=== PATIENT | male | born 1930 | race Caucasian/White ===

== ENCOUNTER 2016-09-14 11:17 | Emergency (ER) | payer MEDICARE, OTHER ==
--- NOTE | 2016-09-14 12:17 | XRAY Report ---
EXAM: CHEST RADIOGRAPHY EXAM DATE: 09/14/2016 11:56 AM. CLINICAL HISTORY: Fatigue tachypnea. COMPARISON: Single view of the chest 05/22/2015. TECHNIQUE: 2 views. FINDINGS: Lungs/Pleura: Stable vascular prominence. Coarse interstitial infiltrates predominating within the lo wer lung mosqueda, left greater than right, mildly progressed. New small left pleural effusion. Very sm all posterior right pleural effusion is not excluded. No pneumothorax. Mediastinum: Stable cardiac enlargement. Stable transvenous cardiac leads. Median sternotomy/CABG fransisco nges redemonstrated. Other: None. IMPRESSION: 1. Stable cardiac enlargement. 2. Stable vascular congestion/prominence. 3. Bilateral coarse interstitial infiltrates predominating within the lower lung mosqueda, left greater than right, are mildly increased compared with 05/22/2015. This could represent progression of chron ic interstitial lung disease, versus mild superimposed acute infiltrate or edema. 4. Small left and possible very small right pleural effusion. [facility] Referring Provider Line: [phone] SITE ID: [id number]
[2016-09-14 12:27] LABS: BASOPHILS # (AUTO) 0.1 10^3/uL (0.0-0.1); BASOPHILS % (AUTO) 0.6 %; EOSINOPHILS # (AUTO) 0.1 10^3/uL (0.0-0.7); EOSINOPHILS % (AUTO) 0.7 %; HCT - HEMATOCRIT 39.9 % (42.0-52.0); HGB - HEMOGLOBIN 13.3 g/dL (14.0-18.0); LYMPHOCYTES # (AUTO) 0.5 10^3/uL (1.5-3.5); MEAN CORPUSCULAR HEMOGLOBIN 30.1 pg (27.0-31.0); MEAN CORPUSCULAR HGB CONC 33.3 g/dL (32.0-36.0); MEAN CORPUSCULAR VOLUME 90.5 fL (80.0-94.0); MEAN PLATELET VOLUME 7.7 fL (7.4-11.4); MONOCYTES % (AUTO) 9.3 %; NEUTROPHILS # (AUTO) 9.1 10^3/uL (1.5-6.6); NEUTROPHILS % (AUTO) 84.4 %; RED BLOOD COUNT 4.41 10^6/uL (4.70-6.10); UNCORRECTED WHITE BLOOD COUNT 10.8 x10^3/uL; WHITE BLOOD COUNT 10.8 x10^3/uL (4.8-10.8)
[2016-09-14 12:38] LABS: CALCIUM 9.3 mg/dL (8.5-10.3); CREATININE 1.2 mg/dL (0.6-1.2); POTASSIUM 4.4 mmol/L (3.5-5.0)
[2016-09-14] MEDS ORDERED: FUROSEMIDE 40 MG/4 ML VIAL IVP STA (13:46)
[2016-09-14 14:03] VITALS: BP 136/57
[2016-09-14] MEDS ORDERED: FUROSEMIDE 20 MG TABLET PO STA (14:12)
[2016-09-14] MEDS ORDERED: FUROSEMIDE 20 MG TABLET ONE (14:27)
[2016-09-14 15:22] LABS: BILIRUBIN,URINE NEGATIVE (NEGATIVE); PH,URINE 7.5 PH (5.0-7.5)
[2016-09-14 15:23] LABS: UA CHARGE (STRIP ONLY) YES; UR CULTURE IF IND NOT INDICATED
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
== END 2016-09-14 16:16 | disposition home or self-care (01) ==
LOC: ED 11:17
DX: J81.0 Acute pulmonary edema (principal); I25.5 Ischemic cardiomyopathy; I25.10 Atherosclerotic heart disease of native coronary artery without angina pectoris; Z95.1 Presence of aortocoronary bypass graft; Z95.810 Presence of automatic (implantable) cardiac defibrillator; I25.2 Old myocardial infarction; E11.9 Type 2 diabetes mellitus without complications; Z79.84 Long term (current) use of oral hypoglycemic drugs; N40.0 Benign prostatic hyperplasia without lower urinary tract symptoms; Z79.82 Long term (current) use of aspirin
CPT/HCPCS: 36415; 71020; 80048; 81003; 83880; 84484; 85025; 99283; 99284; A9270; 81001; 87086

== ENCOUNTER 2016-11-06 09:58 | Outpatient (CLI) | payer MEDICARE, OTHER | END 2016-11-06 09:59 | disposition critical access hospital (66) | LOC: EMS 09:58 | PROVIDERS: ATTEND Surgery | DX: R53.1 Weakness (principal); R47.81 Slurred speech; R29.810 Facial weakness | CPT/HCPCS: A0425; A0429 ==

== ENCOUNTER 2016-11-06 10:12 | Inpatient (IN) | payer MEDICARE, OTHER ==
[2016-11-06 10:54] LABS: BASOPHILS # (AUTO) 0.1 10^3/uL (0.0-0.1); BASOPHILS % (AUTO) 0.4 %; EOSINOPHILS # (AUTO) 0.2 10^3/uL (0.0-0.7); EOSINOPHILS % (AUTO) 1.2 %; HCT - HEMATOCRIT 41.6 % (42.0-52.0); HGB - HEMOGLOBIN 14.2 g/dL (14.0-18.0); LYMPHOCYTES # (AUTO) 0.6 10^3/uL (1.5-3.5); LYMPHOCYTES % (AUTO) 4.7 %; MEAN CORPUSCULAR HEMOGLOBIN 29.9 pg (27.0-31.0); MEAN CORPUSCULAR HGB CONC 34.1 g/dL (32.0-36.0); MEAN CORPUSCULAR VOLUME 87.6 fL (80.0-94.0); MEAN PLATELET VOLUME 7.8 fL (7.4-11.4); MONOCYTES # (AUTO) 0.7 10^3/uL (0.0-1.0); MONOCYTES % (AUTO) 5.4 %; NEUTROPHILS # (AUTO) 11.5 10^3/uL (1.5-6.6); NEUTROPHILS % (AUTO) 88.3 %; RED BLOOD COUNT 4.75 10^6/uL (4.70-6.10)
--- NOTE | 2016-11-06 10:58 | CT Preliminary Report ---
Exam: CT Head W/O IMPRESSION: 1. Generalized age-related cortical atrophic changes without evidence of acute intracranial bleed or hematoma. 2. No significant interval changes of the prior asymmetrical prominent lateral ventricles, greater on the right side with left midline shift of 5 mm since 02/03/2014, which could be related to chronic a symmetrical parenchyma atrophy, otherwise, nonspecific finding. [facility] SITE ID: [id number]
[2016-11-06 11:01] LABS: CALCIUM 9.3 mg/dL (8.5-10.3); CREATININE 1.3 mg/dL (0.6-1.2); POTASSIUM 3.8 mmol/L (3.5-5.0)
--- NOTE | 2016-11-06 11:01 | CT Report ---
EXAM: CT HEAD EXAM DATE: 11/06/2016 10:41 AM. CLINICAL HISTORY: R facial droop, L gaze dev. COMPARISON: 05/22/2015. TECHNIQUE: Multiaxial CT images were obtained from the foramen magnum to the vertex. IV contrast: Non e. Reformats: Coronal. In accordance with CT protocol optimization, one or more of the following dose reduction techniques w ere utilized for this exam: automated exposure control, adjustment of mA and/or KV based on patient s ize, or use of iterative reconstructive technique. FINDINGS: Parenchyma: No intraparenchymal hemorrhage. No evidence of mass or midline shift. Mendoza-white differen tiation is distinct. Extraaxial Spaces: Normal for age. No subdural or epidural collections identified. Ventricles: The prior asymmetrical prominent lateral ventricles, greater on the right side with left midline shift of 5 mm again visualized, without significant interval changes; the cortical sulci are enlarged, consistent with age-related tissue loss. Sinuses: Imaged paranasal sinuses, orbits, and mastoids show no significant abnormality. Bones: No evidence of fracture or calvarial defect. Other: Diffuse chronic microangiopathic white matter changes are evident. IMPRESSION: 1. Generalized age-related cortical atrophic changes without evidence of acute intracranial bleed or hematoma. 2. No significant interval changes of the prior asymmetrical prominent lateral ventricles, greater on the right side with left midline shift of 5 mm since 02/03/2014, which could be related to chronic a symmetrical parenchyma atrophy, otherwise, nonspecific finding. [facility] Referring Provider Line: [phone] SITE ID: [id number]
[2016-11-06 11:13] LABS: INR 1.1 (0.8-1.2)
--- NOTE | 2016-11-06 11:13 | ED Physician Documentation ---
History of Present Illness - Stated complaint Stated Complaint: FACIAL DROOP - Chief complaint Chief Complaint: Neuro - Additonal information Additional information: hx from pt 86 male awoke this AM and could not stand and had trouble speaking initially he said he could walk around his room but after repeated careful questioning it seems he awoke with these sx he called staff for help and is BIBA noted to have R facial droop and slurred speech denies FOSTER CP AP no reported fever cough NVD Review of Systems Constitutional: denies: Fever Eyes: denies: Decreased vision Ears: denies: Loss of hearing Cardiac: denies: Chest pain / pressure Respiratory: denies: Dyspnea GI: denies: Abdominal Pain Neurologic: reports: Focal weakness, Difficulty speaking. denies: Headache Endocrine: denies: Easy bruising / bleeding Immunocompromised: denies: Immunocompromised PD PAST MEDICAL HISTORY - Past Medical History Past Medical History: Yes Cardiovascular: Coronary artery disease, [place], Other Respiratory: None Neuro: None Endocrine/Autoimmune: Type 2 diabetes GI: None : Benign prostate hypertrophy Psych: Depression Musculoskeletal: None - Past Surgical History Past Surgical History: Yes Ortho: Knee replacement Cardiovascular: CABG, Coronary stent, Pacemaker, AICD HEENT: Cataracts - Present Medications Home Medications: Ambulatory Orders Medication Instructions Recorded Confirmed Glipizide [Glucotrol Xl] 5 mg PO BID 08/02/12 11/06/16 Metformin HCl [Fortamet] 850 mg PO BID 08/02/12 11/06/16 Metoprolol Succinate [Toprol Xl] 50 mg PO BID 08/02/12 11/06/16 Temazepam [Restoril] 30 mg PO HS 08/02/12 09/14/16 Losartan [Cozaar] 25 mg DAILY 09/29/15 11/06/16 Aspirin 81 mg DAILY 09/14/16 11/06/16 Furosemide [Lasix] 40 mg PO DAILY #30 tablet 09/14/16 11/06/16 Atorvastatin [Lipitor] 20 11/06/16 - Allergies Allergies/Adverse Reactions: Allergies Allergy/AdvReac Type Severity Reaction Status Date / Time No Known Drug Allergies Allergy Verified 09/29/15 15:31 - Social History Does the pt smoke?: No Smoking Status: Never smoker Does the pt drink ETOH?: Yes Does the pt have substance abuse?: No PD ED PE NORMAL - Vitals Vital signs reviewed: Yes - General General: Other (alert oriented cooperative) - HEENT HEENT: PERRL. No: EOMI (L eye gaze dev (cannot look right past midline), no vision cuts, R facial droop) - Neck Neck: Supple, no meningeal sign - Cardiac Cardiac: RRR - Respiratory Respiratory: No respiratory distress, Clear bilaterally - Abdomen Abdomen: Non tender - Derm Derm: Normal color - Neuro Neuro: Alert and oriented X 3, No sensory deficit. No: seam steamer 2-12 intact, No motor deficit, Normal speech Results - Vitals Vitals: Vital Signs - 24 hr 11/06/16 11/06/16 10:15 11:00 Temperature 36.5 C Heart Rate 79 71 Respiratory 14 18 Rate Blood Pressure 157/84 H 135/72 H O2 Saturation 98 96 Oxygen O2 Source [With Activity] Room air O2 Source [Without Activity] Room air O2 Source Room air - EKG (time done) 1056 Rate: Rate (enter#) Rhythm: NSR Intervals: Normal NC, LBBB - Labs Labs: Laboratory Tests 11/06/16 11/06/16 11/06/16 10:23 10:45 10:45 WBC 13.0 H RBC 4.75 Hgb 14.2 Hct 41.6 L MCV 87.6 MCH 29.9 MCHC 34.1 RDW 15.0 Plt Count 166 MPV 7.8 Neut # 11.5 H Lymph # 0.6 L [place] # 0.7 Eos # 0.2 Baso # 0.1 Absolute Nucleated RBC 0.00 Nucleated RBCs 0.0 PT 12.0 INR 1.1 Sodium 133 L Potassium 3.8 Chloride 92 L Carbon Dioxide 24 Anion Gap 17.0 H BUN 36 H Creatinine 1.3 H Estimated GFR (MDRD) 52 L Glucose 361 H Calcium 9.3 - Rads (name of study) CTH Radiology: See rad report (no acute, no change from prior) PD MEDICAL DECISION MAKING - ED course ED course: acute CVA, onset onknown so not a TPA candidate, CTH abn but no acute change will admit Departure - Departure Disposition: 66 [facility] DC/Xfer Clinical Impression: Cerebrovascular accident (CVA) Qualifiers: CVA mechanism: unspecified Qualified Code(s): I63.9 - Cerebral infarction, unspecified Discharge Date/Time: 11/06/16 12:25 NIHSS - Time Time: 10:20 - Level of Consciousness Level of consciousness: (0) Alert, Keenly responsive LOC Questions: (0) Answers both Q's correct LOC Commands: (0) Performs both correctly - Gaze Best Gaze: (1) Partial gaze palsy - Visual Visual: (0) No loss - Facial Palsy Facial Palsy: (2) Partial paralysis (spares forehead) - Motor Arms (both separate) Motor Arm (right): (0) No drift Motor Arm (left): (0) No drift - Motor Legs (both separate) Motor Leg (right): (2) Some effort against gravity Motor Leg (left): (2) Some effort against gravity - Limb Ataxia Limb Ataxia: (0) Absent - Sensory Sensory: (0) Normal - Best Language Best Language: (0) No aphasia - Dysarthria Dysarthria: (2) Severe dysarthria - Extinction and Inattention (formally neg Extinction and inattention: (0) No abnormality - Total Score/Results Total Score/Result: 9
[2016-11-06] MEDS ORDERED: ONDANSETRON 4 MG/2 ML VIAL IVP PRN (11:50)
[2016-11-06] MEDS ORDERED: SODIUM CHLORIDE FLUSH 0.9% 10 ML SYRINGE IVP PRN (11:50)
[2016-11-06] MEDS ORDERED: ONDANSETRON ODT 4 MG TABLET TL PRN (11:50)
[2016-11-06] MEDS ORDERED: CLOPIDOGREL 75 MG TABLET PO SCH (12:00)
[2016-11-06] MEDS ORDERED: IOPAMIDOL-300 100 ML VIAL ONE (12:20)
--- NOTE | 2016-11-06 14:49 | Ultrasound Report ---
CAROTID DOPPLER: 11/06/2016 CLINICAL HISTORY: Acute right hemiplegia, difficulty speaking, facial droop. TECHNIQUE: Real-time sonographic vascular imaging was performed by the hydraulic bull riveter operator through the carotid arteries utilizing both color-flow and Doppler spectral analysis. Multiple associate financial representative static images were saved for review. Vessel PSV cm/sec 2D Plaque Estimate % EDV cm/sec ICA/CCA PSV % Stenosis RCCA Prox 80 -- RCCA Dist 41 6 -- RECA 63 -- RT BULB 43 -- 3 1 ARLEY Prox 53 -- 13 1.3 ARLEY Mid 53 -- 12 1.3 ARLEY Dist 65 -- 15 1.6 RVA 36 RVA flow direction: Antegrade. Vessel PSV cm/sec 2D Plaque Estimate % EDV cm/sec ICA/CCA PSV % Stenosis LCCA Prox 106 -- LCCA Dist 46 6 -- LECA 76 -- LFT BULB 43 -- 4 0.9 LICA Prox 34 -- 5 0.7 LICA Mid 46 -- 13 1 LICA Dist 68 -- 21 1.5 LVA 48 LVA flow direction: Antegrade. Velocity criteria are extrapolated from diameter data as defined by the Society of Radiologists in Ultrasound Consensus Conference Radiology 2003; 229; 340-346. Degree of Stenosis % ICA PSV cm/sec Plaque Estimate % ICA/CCA RSV Ratio ICA EDV cm/sec Normal < 125 None < 2.0 < 40 <50 < 125 < 50 < 2.0 < 40 50-69 125 - 130 >/= 50 2.0 - 4.0 40 - 100 >/= 70 but less than near occlusion > 230 >/= 50 > 4.0 > 100 Near occlusion High, low, or undetectable Visible lumen Variable Variable Total occlusion Undetectable No detectable lumen Not applicable Not applicable FINDINGS RIGHT: There is mild plaquing in the right carotid bifurcation, without evidence of a focal hemodynamically significant carotid stenosis. LEFT: There is mild plaquing in the left carotid bifurcation, without evidence of a focal hemodynamically significant carotid stenosis. The vertebral arteries demonstrate antegrade flow bilaterally. IMPRESSION: NO FLOW LIMITING STENOSIS IN EITHER CAROTID SYSTEM. BILATERAL VERTEBRAL ARTERY ANTEGRADE BLOOD FLOW. MTDD
[2016-11-06] MEDS ORDERED: IOPAMIDOL-300 100 ML VIAL IVP ONE (14:50)
--- NOTE | 2016-11-06 16:04 | CT Preliminary Report ---
Exam: CT Head Angio IMPRESSION: Postcontrast CT scan of the head: 1. 6 mm dural based extra-axial nodule in the left quadrigeminal plate cistern along the inferior mimi e margin of the tentorium. This suggests small meningioma. 2. No abnormal intra-axial enhancement. 3. Senescent change. Age-related atrophy. CT angiogram of the head: 1. Markedly abnormal posterior fossa circulation. There is no significant contrast opacification of v ertebrobasilar system. No opacification of bilateral PICA or is seen. No opacification of the left rojas perior cerebellar artery is seen. This likely is due to high-grade stenosis/occlusion in the distal b asilar artery immediately proximal to the right superior cerebellar artery origin. With this there is faint if any antegrade flow in the more proximal vertebrobasilar system. (On the postcontrast CT amy ges there is contrast opacification in the dominant right vertebral artery and proximal basilar arter y.) 2. Collateral filling of the basilar tip is seen through patent P-comm. Retrograde filling to the rig ht superior cerebellar artery is seen. No opacification of the left superior cerebellar artery is not ed. 3. Anterior cerebral circulation is patent. Critical result: Findings are discussed with referring physician, Dr. Danita Rai, on 11/06/2016 at 1 559 hrs. [facility] SITE ID: [id number]
--- NOTE | 2016-11-06 16:07 | CT Report ---
EXAM: CT ANGIOGRAM HEAD. Postcontrast CT scan of the head. EXAM DATE: 11/06/2016 03:00 PM. CLINICAL HISTORY: Acute right hemiplegia. COMPARISON: CT scan of the head without contrast 11/06/2016, 05/22/2015. TECHNIQUE: Routine helical CTA imaging was performed through the head. Routine axial CT imaging of th e head was performed following intravenous contrast administration IV Contrast: 80 cc Isovue 300. Rec onstructions: Routine multiplanar 3D MIP reconstructions. NASCET Criteria are used for stenosis measu rements. In accordance with CT protocol optimization, one or more of the following dose reduction techniques w ere utilized for this exam: automated exposure control, adjustment of mA and/or KV based on patient s ize, or use of iterative reconstructive technique. FINDINGS: Postcontrast CT scan of the head: There is an oval 6 mm dural based extra-axial enhancing nodule seen inferiorly along the anterior immi e margin of the left tentorium. This is seen in the left aspect of the quadrigeminal plate cistern. T his is consistent with small meningioma. Age advanced volume loss is seen. No abnormal intra-axial enhancement is seen. Prominence to the ventricular system and overlying cortical sulci is noted. No acute hydrocephalus. The skull is intact. No sinusitis evident. CT angiogram intracranial circulation: (Study is performed in early arterial phase of dynamic contrast administration.) Anterior Circulation: The internal carotid arteries (ICA), middle cerebral arteries (MCA), and anteri or cerebral arteries (ANGELA) are patent bilaterally. The anterior communicating artery (A-COM) is not w ell seen. No aneurysm or significant stenosis. Prominent P-comm are noted bilaterally. Retrograde filling to the basilar tip and right superior cere bellar artery is seen. The right P1 segment is normal. The left P1 segment off the basilar tip is hyp oplastic. Posterior Circulation: Markedly abnormal. No significant contrast enhancement of the vertebrobasilar system is seen. Collateral filling to the basilar tip through bilateral P-comm is noted. This fills i nferiorly to the level of the right superior cerebellar artery. Left superior cerebellar artery is no t identified. More proximal basilar artery is not opacified. The posterior communicating arteries (P- COM) are patent bilaterally. Other: The dural sinuses are faintly opacified bilaterally. The right transverse sinus and jugular bu lb are dominant IMPRESSION: Postcontrast CT scan of the head: 1. 6 mm dural based extra-axial nodule in the left quadrigeminal plate cistern along the inferior mimi e margin of the tentorium. This suggests small meningioma. 2. No abnormal intra-axial enhancement. 3. Senescent change. Age-related atrophy. CT angiogram of the head: 1. Markedly abnormal posterior fossa circulation. There is no significant contrast opacification of v ertebrobasilar system. No opacification of bilateral PICA or is seen. No opacification of the left rojas perior cerebellar artery is seen. This likely is due to high-grade stenosis/occlusion in the distal b asilar artery immediately proximal to the right superior cerebellar artery origin. With this there is faint if any antegrade flow in the more proximal vertebrobasilar system. (On the postcontrast CT amy ges there is contrast opacification in the dominant right vertebral artery and proximal basilar arter y.) 2. Collateral filling of the basilar tip is seen through patent P-comm. Retrograde filling to the rig ht superior cerebellar artery is seen. No opacification of the left superior cerebellar artery is not ed. 3. Anterior cerebral circulation is patent. Critical result: Findings are discussed with referring physician, Dr. Danita Rai, on 11/06/2016 at 1 559 hrs. [facility] Referring Provider Line: [phone] SITE ID: [id number]
[2016-11-06] MEDS: SODIUM CHLORIDE FLUSH 0.9% 10 ML SYRINGE IVP SCH ×2 (17:00→19:32)
[2016-11-06] MEDS ORDERED: INSULIN GLARGINE 300 UNIT/3 ML PEN SUBQ SCH (18:00)
[2016-11-06] MEDS ORDERED: INSULIN REGULAR HUMAN 100 UNIT/1 ML 10 ML MDV SUBQ SCH (18:00)
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
[2016-11-06] MEDS ORDERED: ONDANSETRON ODT 4 MG TABLET ONE (19:44)
[2016-11-06] MEDS ORDERED: METOPROLOL SUCCINATE 50 MG TABLET PO SCH ×2 (21:00)
[2016-11-06] MEDS ORDERED: ATORVASTATIN 40 MG TABLET PO SCH ×2 (21:00)
[2016-11-07] MEDS: INSULIN REGULAR HUMAN 100 UNIT/1 ML 10 ML MDV SUBQ SCH ×4 (01:33→18:39)
[2016-11-07] MEDS ORDERED: SODIUM CHLORIDE FLUSH 0.9% 10 ML SYRINGE IVP ONE (06:14)
[2016-11-07 06:26] LABS: BASOPHILS % (AUTO) 0.2 %; EOSINOPHILS # (AUTO) 0.1 10^3/uL (0.0-0.7); EOSINOPHILS % (AUTO) 0.3 %; HCT - HEMATOCRIT 45.1 % (42.0-52.0); HGB - HEMOGLOBIN 15.1 g/dL (14.0-18.0); LYMPHOCYTES # (AUTO) 0.4 10^3/uL (1.5-3.5); LYMPHOCYTES % (AUTO) 1.9 %; MEAN CORPUSCULAR HEMOGLOBIN 29.9 pg (27.0-31.0); MEAN CORPUSCULAR HGB CONC 33.6 g/dL (32.0-36.0); MEAN CORPUSCULAR VOLUME 89.2 fL (80.0-94.0); MEAN PLATELET VOLUME 7.9 fL (7.4-11.4); MONOCYTES # (AUTO) 1.3 10^3/uL (0.0-1.0); MONOCYTES % (AUTO) 6.6 %; NEUTROPHILS # (AUTO) 17.5 10^3/uL (1.5-6.6); NUCLEATED RED BLOOD CELLS AUTO 0.1 /100WBC; RED BLOOD COUNT 5.06 10^6/uL (4.70-6.10); RED CELL DISTRIBUTION WIDTH 15.3 % (12.0-15.0); UNCORRECTED WHITE BLOOD COUNT 19.3 x10^3/uL; WHITE BLOOD COUNT 19.3 x10^3/uL (4.8-10.8)
[2016-11-07 06:35] LABS: ALBUMIN/GLOBULIN RATIO 1.4 (1.0-2.2); CALCIUM 9.4 mg/dL (8.5-10.3); CREATININE 1.2 mg/dL (0.6-1.2); POTASSIUM 3.8 mmol/L (3.5-5.0); TOTAL PROTEIN 6.8 g/dL (6.7-8.2)
[2016-11-07] MEDS: SODIUM CHLORIDE FLUSH 0.9% 10 ML SYRINGE IVP SCH ×3 (06:43→21:50)
--- NOTE | 2016-11-07 07:29 | XRAY Preliminary Report ---
Exam: XR Chest 1 View IMPRESSION: 1. Cardiomegaly and postoperative changes with borderline pulmonary vascular congestion. [facility] SITE ID: [id number]
--- NOTE | 2016-11-07 07:32 | XRAY Report ---
EXAM: CHEST RADIOGRAPHY EXAM DATE: 11/07/2016 07:15 AM. CLINICAL HISTORY: Shortness of breath. COMPARISON: 09/14/2016. TECHNIQUE: 1 view. FINDINGS: Lungs/Pleura: Borderline pulmonary vascular congestion. No definite alveolar consolidation or pleural effusion. Right costophrenic angle is not completely included. No pneumothorax seen. Mediastinum: Mild cardiomegaly. Other: Median sternotomy and CABG. Implanted bipolar pacemaker on the left is unchanged. IMPRESSION: 1. Cardiomegaly and postoperative changes with borderline pulmonary vascular congestion. [facility] Referring Provider Line: [phone] SITE ID: [id number]
--- NOTE | 2016-11-07 08:50 | PROVIDER PROGRESS NOTE ---
Subjective - Prog Note Date Prog Note Date: 11/07/16 Prog Note Time: 08:48 - Subjective Subjective: When I met the patient in the emergency room yesterday he turned his head to my voice. Left eye was open and he tracks me across the room. He was able to answer simple questions with yes no. At one point when I told him he was having a stroke he raised his left eyebrow and told me "I know". When he got to the floor, he was not verbal at all but still had his eyes open. Holding onto my hand with his left hand. He was in tears when I told him that he was having a stroke and it was getting worse. Overnight he has become more more obtunded. His son [place]. While he recognizes Patrick has his eyes open. He can barely squeeze using his left arm now. He is completely nonverbal, unable to say yes or no, and much sleepier. Current Medications - Current Medications Current Medications: Active Medications Aspirin () 300 mg MA DAILY [facility] Atorvastatin Calcium (Lipitor) 80 mg PO QPM [facility] Last Admin: 11/06/16 19:29 Dose: Not Given Clopidogrel Bisulfate (Plavix) 75 mg PO DAILY [facility] Last Admin: 11/06/16 13:22 Dose: Not Given Insulin Human Regular (Novolin R) 2 - 10 unit SUBQ Q6HR [facility] PRN Reason: Protocol Last Admin: 11/07/16 06:42 Dose: 8 unit Losartan Potassium (Cozaar) 25 mg PO DAILY [facility] Metoprolol Succinate (Toprol Xl) 50 mg PO BID [facility] Last Admin: 11/06/16 19:29 Dose: Not Given Ondansetron HCl (Zofran Odt) 4 mg TL Q6HR PRN PRN Reason: Nausea / Vomiting Last Admin: 11/06/16 19:41 Dose: 4 mg Ondansetron HCl (Zofran Inj) 4 mg IVP Q6HR PRN PRN Reason: Nausea / Vomiting Polyethylene Glycol (Miralax) 17 gm PO DAILY [facility] Sodium Chloride (Normal Saline Flush 0.9%) 10 ml IVP PRN PRN PRN Reason: NEEDED PER PROVIDER ORDERS Sodium Chloride (Normal Saline Flush 0.9%) 10 ml IVP Q8HR [facility] Last Admin: 11/07/16 06:43 Dose: 10 ml Glipizide [Glucotrol Xl] 5 mg PO BID 08/02/12 Metformin HCl [Fortamet] 850 mg PO BID 08/02/12 Metoprolol Succinate [Toprol Xl] 50 mg PO BID 08/02/12 Temazepam [Restoril] 30 mg PO HS 08/02/12 Losartan [Cozaar] 25 mg DAILY 09/29/15 Aspirin 81 mg DAILY 09/14/16 Atorvastatin [Lipitor] 20 11/06/16 Objective - Vital Signs/Intake & Output Reviewed Vital Signs: Yes Vital Signs: Vital Signs x48h Temp Pulse Resp BP Pulse Ox 11/07/16 07:33 36.7 C 70 20 113/53 L 95 11/07/16 02:00 36.6 C 80 18 119/59 L 94 Intake & Output: Intake & Output 11/04/16 11/05/16 11/06/16 11/07/16 23:59 23:59 23:59 23:59 Intake Total 0 Output Total 1650 1500 Balance -1651500 - Objective General Appearance: positive: No acute distress, Lethargic Eyes Bilateral: positive: Other (Right eyelid completely closed with a right facial droop. Left pupil pinpoint right is slightly dilated) ENT: positive: Dry mucous membranes Neck: positive: No JVD. negative: Stiff neck, Carotid bruit Respiratory: positive: Chest non-tender, Rales, Other (Rales and slightly gurgling respiration are starting to ensue. Cody stoking respiration occurring) Cardiovascular: positive: Regular rate & rhythm. negative: Gallop/S4, Friction rub Abdomen: positive: Non-tender, No organomegaly, Nml bowel sounds, No distention Skin: positive: Warm, Dry Extremities: positive: Pedal edema Neurologic/Psychiatric: positive: Other (He is still responsive to voice of his son. Left eye opens. Left hand weakly squeezes. Otherwise he has right body hemiplegia and right facial droop with a changing respiration pattern) - Lab Results Fish Bones: 11/07/16 06:09 11/07/16 06:09 Other Labs: Lab Results x24hrs 11/07/16 11/07/16 Range/Units 06:09 06:09 WBC 19.3 H (4.8-10.8) x10^3/uL RBC 5.06 (4.70-6.10) 10^6/uL Hgb 15.1 (14.0-18.0) g/dL Hct 45.1 (42.0-52.0) % MCV 89.2 (80.0-94.0) fL MCH 29.9 (27.0-31.0) pg MCHC 33.6 (32.0-36.0) g/dL RDW 15.3 H (12.0-15.0) % Plt Count 171 (130-450) 10^3/uL MPV 7.9 (7.4-11.4) fL Neut # 17.5 H (1.5-6.6) 10^3/uL Lymph # 0.4 L (1.5-3.5) 10^3/uL [place] # 1.3 H (0.0-1.0) 10^3/uL Eos # 0.1 (0.0-0.7) 10^3/uL Baso # 0.0 (0.0-0.1) 10^3/uL Absolute Nucleated RBC 0.03 x10^3/uL Nucleated RBCs 0.1 /100WBC Sodium 138 (135-145) mmol/L Potassium 3.8 (3.5-5.0) mmol/L Chloride 96 L (101-111) mmol/L Carbon Dioxide 29 (21-32) mmol/L Anion Gap 13.0 (6-13) BUN 36 H (6-20) mg/dL Creatinine 1.2 (0.6-1.2) mg/dL Estimated GFR (MDRD) 57 L (>89) Glucose 293 H (70-100) mg/dL Calcium 9.4 (8.5-10.3) mg/dL Total Bilirubin 1.0 (0.2-1.0) mg/dL AST 39 (10-42) IU/L ALT 31 (10-60) IU/L Alkaline Phosphatase 55 (42-121) IU/L Total Protein 6.8 (6.7-8.2) g/dL Albumin 4.0 (3.2-5.5) g/dL Globulin 2.8 (2.1-4.2) g/dL Albumin/Globulin Ratio 1.4 (1.0-2.2) Assessment/Plan - Problem List (1) Cerebrovascular accident (CVA) Impression: 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 Prognosis is poor. I have spoken at length to his son Edison last night and his son Eliseo today. I will cancel PT and OT since the patient is not capable to do it. Will ask nurse to do bedside swallow evaluation but I assume he will fail. As such we will need to have medications changed to only IV or sublingual or per rectum. With the prognosis that is poor, his children will not explore what to do as the next step. When all 3 together we can sit down and discuss at this evening. I recommend transition to his own home at [facility] with hospice care and their care. Otherwise he may have to go to senior care facility. Qualifiers: CVA mechanism: stenosis Precerebral and cerebral artery: basilar artery Qualified Code(s): I63.22 - Cerebral infarction due to unspecified occlusion or stenosis of basilar arteries (2) HTN (hypertension) Impression: In spite of stroke and possible early herniation, his blood pressure is low. At this time blood pressure 180 systolic will be acceptable. 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 Sliding scale insulin and 1 dose of Lantus 5 units he has been dropped down to 253 today. Lantus was discontinued by his nurse. I will investigate what the rationale was. Resume Lantus again today.
[2016-11-07] MEDS ORDERED: POLYETHYLENE GLYCOL 3350 17 GM PACKET PO SCH (09:00)
[2016-11-07] MEDS ORDERED: ASPIRIN 300 MG SUPP PR SCH (09:00)
[2016-11-07] MEDS ORDERED: LOSARTAN 50 MG TABLET PO SCH ×2 (09:00→12:00)
[2016-11-07] MEDS ORDERED: ONDANSETRON ODT 4 MG TABLET TL PRN (11:44)
[2016-11-07] MEDS ORDERED: ONDANSETRON 4 MG/2 ML VIAL IVP PRN (11:44)
[2016-11-07] MEDS ORDERED: CLOPIDOGREL 75 MG TABLET PO SCH (12:00)
[2016-11-07] MEDS: ASPIRIN 300 MG SUPP PR SCH (14:27)
[2016-11-07] MEDS ORDERED: SCOPOLAMINE PATCH TOP SCH (17:00)
[2016-11-07] MEDS: ATROPINE 1% OPHTH DROPS 2 ML SL PRN (18:04)
[2016-11-08] MEDS: INSULIN REGULAR HUMAN 100 UNIT/1 ML 10 ML MDV SUBQ SCH ×4 (03:12→19:13)
[2016-11-08] MEDS: SODIUM CHLORIDE FLUSH 0.9% 10 ML SYRINGE IVP SCH ×3 (06:20→22:33)
--- NOTE | 2016-11-08 07:48 | PROVIDER PROGRESS NOTE ---
Subjective - Prog Note Date Prog Note Date: 11/08/16 Prog Note Time: 07:48 - Subjective Subjective: He is responsive to his children's voice. He will continue to open up his left eye and look at them. Occasionally weakly squeezes left hand. Cody-Pineda respiration is not as severe. But he is not improved over the last 24 hours. All 3 of his children here. There is a long family consult between them and the nocturnal wrist, Dr. Parsons, last night Current Medications - Current Medications Current Medications: Active Medications Aspirin () 300 mg IA DAILY [facility] Last Admin: 11/07/16 14:27 Dose: 300 mg Atropine Sulfate (Isopto Atropine 1% Ophth Drops) 1 - 4 drops SL Q2H PRN PRN Reason: Excessive Secretions Last Admin: 11/07/16 18:04 Dose: 2 drops Insulin Human Regular (Novolin R) 2 - 10 unit SUBQ Q6HR [facility] PRN Reason: Protocol Last Admin: 11/08/16 06:19 Dose: 4 unit Ondansetron HCl (Zofran Odt) 4 mg TL Q6HR PRN PRN Reason: Nausea / Vomiting Ondansetron HCl (Zofran Inj) 4 mg IVP Q6HR PRN PRN Reason: Nausea / Vomiting Scopolamine HBr (Transderm-Scop) 1 patch TOP Q3D [facility] Last Admin: 11/07/16 18:03 Dose: 1 patch Sodium Chloride (Normal Saline Flush 0.9%) 10 ml IVP PRN PRN PRN Reason: NEEDED PER PROVIDER ORDERS Sodium Chloride (Normal Saline Flush 0.9%) 10 ml IVP Q8HR [facility] Last Admin: 11/08/16 06:20 Dose: 10 ml Glipizide [Glucotrol Xl] 5 mg PO BID 08/02/12 Metformin HCl [Fortamet] 850 mg PO BID 08/02/12 Metoprolol Succinate [Toprol Xl] 50 mg PO BID 08/02/12 Temazepam [Restoril] 30 mg PO HS 08/02/12 Losartan [Cozaar] 25 mg DAILY 09/29/15 Aspirin 81 mg DAILY 09/14/16 Atorvastatin [Lipitor] 20 11/06/16 Objective - Vital Signs/Intake & Output Reviewed Vital Signs: Yes Vital Signs: Vital Signs x48h Temp Pulse Resp BP Pulse Ox 11/08/16 06:00 36.4 C L 85 14 133/66 H 94 Intake & Output: Intake & Output 11/05/16 11/06/16 11/07/16 11/08/16 23:59 23:59 23:59 23:59 Intake Total 0 0 Output Total 1650 7798 400 Balance -0950 -7700 400 - Objective General Appearance: positive: No acute distress, Lethargic Eyes Bilateral: positive: Other (Right eye deviated laterally and not tracking. Left eye has minimally reactive pupil in the midline) ENT: positive: Dry mucous membranes Neck: positive: Other (JVD is starting to appear). negative: Stiff neck, Carotid bruit Respiratory: positive: Chest non-tender, Rales, Rhonchi. negative: Wheezes Cardiovascular: positive: Regular rate & rhythm. negative: Gallop/S4, Friction rub Abdomen: positive: Non-tender, No organomegaly, Nml bowel sounds, No distention Skin: positive: Warm, Dry Extremities: positive: Pedal edema Neurologic/Psychiatric: positive: Disoriented to person, Disoriented to place, Disoriented to time, Slurred/abnml speech, Other (Right facial droop, right body hemiplegia. Unable to speak anymore. Unable to say yes or no anymore. 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 Prognosis is poor. I have spoken at length to his son Edison on night of admission night and his son Dong yesterday. I have cancelled PT and OT since the patient is not capable to do it. Failed bedside swallow evaluation. As such we will need to have medications changed to only IV or sublingual or per rectum. With the prognosis that is poor, His children have gotten together to talk to Dr. Parsons. It is really difficult to save his is imminent or not. He has been stable over the course of the last 24 hours and that he is still encephalopathic with the effects of the stroke. But hemodynamically stable. He may be a candidate for transition to hospice and still returning to [facility]. The cold roll catcher of his voodoo right now came to see him. She says that she would tell his children to do that. Asked me to validate that with them. The voodoo will help take care of him Qualifiers: CVA mechanism: stenosis Precerebral and cerebral artery: basilar artery Qualified Code(s): I63.22 - Cerebral infarction due to unspecified occlusion or stenosis of basilar arteries (2) HTN (hypertension) Impression: In spite of stroke and possible early herniation, his blood pressure is low. At this time blood pressure 180 systolic will be acceptable. 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 Lantus was discontinued by his nurse that first night and it was an error on her part when she moved him to [facility]. Glucose in 150's today.
[2016-11-08] MEDS ORDERED: POLYETHYLENE GLYCOL 3350 17 GM PACKET PO SCH (09:00)
[2016-11-08] MEDS: ASPIRIN 300 MG SUPP PR SCH (09:35)
[2016-11-08] MEDS ORDERED: LORazepam 0.5 MG TABLET SL PRN (14:33)
[2016-11-08] MEDS ORDERED: MORPHINE SOL 10 MG/0.5 ML SYRINGE PO PRN (14:34)
[2016-11-08] MEDS ORDERED: CARBOXYMETHYLCELLULOSE OPHTH DROPS EACHEYE PRN (18:49)
[2016-11-08] MEDS ORDERED: CARBOXYMETHYLCELLULOSE OPHTH DROPS ONE (19:04)
[2016-11-09] MEDS: INSULIN REGULAR HUMAN 100 UNIT/1 ML 10 ML MDV SUBQ SCH ×4 (00:01→18:50)
[2016-11-09] MEDS: MORPHINE 2 MG/ML SYRINGE IVP PRN ×2 (00:14→04:09)
[2016-11-09] MEDS: SODIUM CHLORIDE FLUSH 0.9% 10 ML SYRINGE IVP PRN ×2 (00:15→04:09)
[2016-11-09] MEDS: ATROPINE 1% OPHTH DROPS 2 ML SL PRN (03:59)
[2016-11-09] MEDS: SODIUM CHLORIDE FLUSH 0.9% 10 ML SYRINGE IVP SCH ×2 (05:55→15:01)
[2016-11-09] MEDS: ASPIRIN 300 MG SUPP PR SCH (10:15)
[2016-11-09] MEDS ORDERED: SALIVA STIMULANT SPRAY 44.3 ML BOTTLE PO PRN (17:42)
--- NOTE | 2016-11-09 19:03 | PROVIDER PROGRESS NOTE ---
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 They have now decided to have him in Hospice. A Hospice Consult was requested. Piss transfer to [facility] under Hospice care tomorrow Continue comfort care here. (2) Ischemic cardiomyopathy Assessment/Plan: With permanent Biventricular defibrillator, medtronic type. I explained that deactivating the defib portion is advised to prevent repeat shocks when he dies, and family agreed; the form was signed to have Medtr[employer] Rep deactivate that setting. - Current Meds Current Meds: Current Medications Generic Name Dose Route Start Last Admin Trade Name Freq PRN Reason Stop Dose Admin Aspirin 300 mg 11/07/16 12:00 11/09/16 10:15 SD 300 mg DAILY RADHA Administration Atropine Sulfate 1 - 4 drops 11/07/16 16:39 11/09/16 03:59 Isopto Atropine 1% Ophth Drops SL 2 drops Q2H PRN Administration Excessive Secretions Carboxymethylcellulose 1 drops 11/08/16 18:49 11/09/16 04:07 Refresh 1% Ophth Drops EACHEYE 1 drops PRN PRN Administration Dry Eye Insulin Human Regular 3 - 11 unit 11/09/16 00:00 11/09/16 18:50 Novolin R SUBQ Not Given Q6HR RADHA Protocol Lorazepam 0.5 mg 11/08/16 14:33 11/08/16 14:48 Ativan SL 0.5 mg Q6H PRN Administration Anxiety Morphine Sulfate 5 mg 11/08/16 14:34 11/08/16 21:35 Roxanol PO 5 mg Q2HR PRN Administration PAIN Morphine Sulfate 2 mg 11/08/16 21:50 11/09/16 04:09 Morphine IVP 2 mg Q2H PRN Administration PAIN Scopolamine HBr 1 patch 11/07/16 17:00 11/07/16 18:03 Transderm-Scop TOP 1 patch Q3D RADHA Administration Sodium Chloride 10 ml 11/07/16 11:43 11/09/16 04:09 Normal Saline Flush 0.9% IVP 10 ml PRN PRN Administration NEEDED PER PROVIDER ORDERS Sodium Chloride 10 ml 11/07/16 14:00 11/09/16 15:01 Normal Saline Flush 0.9% IVP 10 ml Q8HR RADHA Administration - Lab Result Fish Bone Diagrams: 11/07/16 06:09 11/07/16 06:09 - Additional Planning My Orders: My Active Orders 11/09/16 Hospice Referral [CONS] Routine 11/09/16 14:37 DIET [NPO] [DIET] 11/09/16 17:42 Saliva Stimulant Edelstein [Biotene Moisturizing Mouth Edelstein] 2 sprays PO Q4H PRN Subjective - Subjective Patient Reports: Other (Family reported he is less responsive to their voices and their touch) Nursing Reports: Other (Flaccid) Objective Vital Signs: Vital Signs - 24 hr 11/09/16 11/09/16 11/09/16 00:02 05:52 07:51 Temperature 36.8 C 37.1 C Heart Rate [ 86 86 Brachial] Respiratory 16 16 Rate Blood Pressure 147/80 H 144/68 H [Right Brachial artery] O2 Saturation 92 92 11/09/16 15:29 Temperature 36.9 C Heart Rate [ 85 Brachial] Respiratory 20 Rate Blood Pressure 136/78 H [Right Brachial artery] O2 Saturation 92 Oxygen O2 Source Room air I&O (Last 24 Hrs): Intake and Output Totals x24h 11/07/16 11/08/16 11/09/16 23:59 23:59 23:59 Intake Total 0 Output Total 2350 1100 825 Balance -2350 -1100 -825 General: Other (Comatose) Neck: Supple Neuro: Other (Flaccid paralysis No response to sternal rub + Babibinski bilat) Extremities: No edema - Results Results: Laboratory Results WBC 19.3 x10^3/uL (4.8-10.8) H 11/07/16 06:09 RBC 5.06 10^6/uL (4.70-6.10) 11/07/16 06:09 Hgb 15.1 g/dL (14.0-18.0) 11/07/16 06:09 Hct 45.1 % (42.0-52.0) 11/07/16 06:09 MCV 89.2 fL (80.0-94.0) 11/07/16 06:09 MCH 29.9 pg (27.0-31.0) 11/07/16 06:09 MCHC 33.6 g/dL (32.0-36.0) 11/07/16 06:09 RDW 15.3 % (12.0-15.0) H 11/07/16 06:09 Plt Count 171 10^3/uL (130-450) 11/07/16 06:09 MPV 7.9 fL (7.4-11.4) 11/07/16 06:09 Neut # 17.5 10^3/uL (1.5-6.6) H 11/07/16 06:09 Lymph # 0.4 10^3/uL (1.5-3.5) L 11/07/16 06:09 Union # 1.3 10^3/uL (0.0-1.0) H 11/07/16 06:09 Eos # 0.1 10^3/uL (0.0-0.7) 11/07/16 06:09 Baso # 0.0 10^3/uL (0.0-0.1) 11/07/16 06:09 Absolute Nucleated RBC 0.03 x10^3/uL 11/07/16 06:09 Nucleated RBCs 0.1 /100WBC 11/07/16 06:09 PT 12.0 secs (9.9-12.6) 11/06/16 10:45 INR 1.1 (0.8-1.2) 11/06/16 10:45 Sodium 138 mmol/L (135-145) 11/07/16 06:09 Potassium 3.8 mmol/L (3.5-5.0) 11/07/16 06:09 Chloride 96 mmol/L (101-111) L 11/07/16 06:09 Carbon Dioxide 29 mmol/L (21-32) 11/07/16 06:09 Anion Gap 13.0 (6-13) 11/07/16 06:09 BUN 36 mg/dL (6-20) H 11/07/16 06:09 Creatinine 1.2 mg/dL (0.6-1.2) 11/07/16 06:09 Estimated GFR (MDRD) 57 (>89) L 11/07/16 06:09 Glucose 293 mg/dL (70-100) H 11/07/16 06:09 Calcium 9.4 mg/dL (8.5-10.3) 11/07/16 06:09 Total Bilirubin 1.0 mg/dL (0.2-1.0) 11/07/16 06:09 AST 39 IU/L (10-42) 11/07/16 06:09 ALT 31 IU/L (10-60) 11/07/16 06:09 Alkaline Phosphatase 55 IU/L (42-121) 11/07/16 06:09 Total Protein 6.8 g/dL (6.7-8.2) 11/07/16 06:09 Albumin 4.0 g/dL (3.2-5.5) 11/07/16 06:09 Globulin 2.8 g/dL (2.1-4.2) 11/07/16 06:09 Albumin/Globulin Ratio 1.4 (1.0-2.2) 11/07/16 06:09 - Procedures Procedures: Procedures CATARAC PHACOEMULS/ASPIR (09/07/12) INSERT LENS AT CATAR EXT (09/07/12) UPPER LID RHYTIDECTOMY (09/14/13)
[2016-11-09] MEDS ORDERED: ACETAMINOPHEN 1,000 MG/100 ML 100 ML IV PRN (22:23)
[2016-11-10] MEDS: SODIUM CHLORIDE FLUSH 0.9% 10 ML SYRINGE IVP SCH ×2 (00:03→05:56)
[2016-11-10] MEDS: MORPHINE 2 MG/ML SYRINGE IVP PRN ×2 (00:10→12:14)
[2016-11-10] MEDS: SODIUM CHLORIDE FLUSH 0.9% 10 ML SYRINGE IVP PRN ×2 (00:10→12:14)
[2016-11-10 07:57] VITALS: BP 136/44
--- NOTE | 2016-11-10 11:13 | Discharge Plan ---
Discharge Plan Disposition: 01 Home, Self Care Condition: Poor Activity Restrictions: Turn & reposition every 2 hours Shower Restrictions: Yes Driving Restrictions: Yes Weight Bearing: No Weight Additional Instructions or Follow Up instructions: Hospice Care for end-of-life No Smoking: If you smoke, Please STOP! Call for help. Follow-up with: Jani Samuels MD [Primary Care Provider] -
--- NOTE | 2016-11-10 11:51 | DISCHARGE SUMMARY ---
DATE OF ADMISSION: 11/06/2016 DATE OF DISCHARGE: 11/10/16 PRESENTATION: This is an 86-year-old white male with history of ischemic cardiomyopathy, biventricular defibrillator in place, diabetes, coronary disease with remote bypass surgery and coronary stenting, hypertension, chronic renal disease, mild cognitive impairment, squamous cell cancer, seborrheic keratosis, and osteoarthritis. He recently was placed in a Detention. The patient presented to the hospital with sudden onset of slurred speech and neurologic changes, and was diagnosed with a CVA. He was admitted for management of the stroke. HOSPITAL COURSE AND DISCHARGE DIAGNOSES 1. Cerebrovascular accident. The Neurologist was contacted and had telemedicine and the patient was not deemed to be a candidate for a thrombolytic or for transfer for higher level of care. This was a large posterior circulation CVA as documented by CTA of the head and neck showing no perfusion to the posterior brain. The patient rapidly declined with his neurologic status. On presentation , he could squeeze with his hand unilaterally and grimace and was aware of family members, and able to raise one arm in response to voice of the family and then in less than 12 hours he had no response to sternal rub and had Cody- Pineda respirations. The family chose to have the patient begin hospice care for end of life. His DNR status prompted an order to deactivate the defibrillator portion of his Bi-V ICD, which was done on 11/10/2016. The patient was unable to take p.o. medications (his prior beta uziel, diabetic medications and blood pressure medications). He was placed in comfort care while here at the hospital and transitioned to hospice care. He was accepted back at his long term, [facility], for end of life care with hospice. 2. Ischemic cardiomyopathy. There were no signs of congestive heart failure during the hospitalization. He was unable to take medications by mouth and these were discontinued and not given parenterally because of his neurologic condition. 3. Diabetes. Glucose fingersticks were discontinued, he did not receive a diet or diabetic medications. 4. Hypertension. No medications were required for blood pressure control and he did not take p.o. medications because of his neurologic impairment. CONDITION AT DISCHARGE: Poor. The patient is transitioned to hospice with end of life care. Time required for completion of discharge including records: 30 minutes. JOB #: [id number] EXT JOB #:[id number] [email or web address]
== END 2016-11-10 13:35 | disposition hospice, inpatient (51) | DRG 64 ==
LOC: EDUNIT# → ED 10:12 → MS3 11:50 → ED 12:25
PROVIDERS: ADMIT Specialist; ATTEND Internal Medicine
DX: I63.9 Cerebral infarction, unspecified (principal); R41.4 Neurologic neglect syndrome; I63.22 Cerebral infarction due to unspecified occlusion or stenosis of basilar artery; R47.1 Dysarthria and anarthria; R47.01 Aphasia; R53.1 Weakness; R29.810 Facial weakness; R40.20 Unspecified coma; I13.0 Hypertensive heart and chronic kidney disease with heart failure and stage 1 through stage 4 chronic kidney disease, or unspecified chronic kidney disease; I50.22 Chronic systolic (congestive) heart failure; R29.709 NIHSS score 9; I25.10 Atherosclerotic heart disease of native coronary artery without angina pectoris; N18.9 Chronic kidney disease, unspecified; E11.22 Type 2 diabetes mellitus with diabetic chronic kidney disease; E78.5 Hyperlipidemia, unspecified; M19.90 Unspecified osteoarthritis, unspecified site; N40.0 Benign prostatic hyperplasia without lower urinary tract symptoms; L82.1 Other seborrheic keratosis; Z79.82 Long term (current) use of aspirin; Z79.84 Long term (current) use of oral hypoglycemic drugs; Z79.899 Other long term (current) drug therapy; Z95.1 Presence of aortocoronary bypass graft; Z95.5 Presence of coronary angioplasty implant and graft; Z95.810 Presence of automatic (implantable) cardiac defibrillator; Z96.659 Presence of unspecified artificial knee joint; Z85.828 Personal history of other malignant neoplasm of skin; Z66 Do not resuscitate
CPT/HCPCS: 36415; 51701; 70450; 70496; 71010; 80048; 80053; 83036; 85025; 85610; 93005; 93880; 99284; 99285

== ENCOUNTER 2016-11-10 13:43 | Outpatient (CLI) | payer MEDICARE, OTHER | END 2016-11-10 13:44 | disposition hospice, inpatient (51) | LOC: EMS 13:43 | PROVIDERS: ATTEND Surgery | DX: I63.9 Cerebral infarction, unspecified (principal) | CPT/HCPCS: A0425; A0428 ==